=== PATIENT | female | born 1950 | race Caucasian/White ===

== ENCOUNTER 2023-05-02 09:28 | Emergency (ER) | payer BC, MEDICARE ==
[~2023-05-02] VITALS: Ht 162.6 cm; Wt 68.5 kg
[2023-05-02] MEDS ORDERED: LIDOCAINE/PRILOCAINE (5GM) 5 GM TUBE TP ONE (09:58)
[2023-05-02] MEDS: LIDOCAINE/PRILOCAINE (5GM) 5 GM TUBE TP ONE (10:00)
[2023-05-02 10:09] VITALS: BP 135/87; TEMP 98.7; O2SAT 100
== END 2023-05-02 10:10 | disposition home or self-care (01) ==
LOC: ER 09:28
DX: R04.0 Epistaxis (principal)